=== PATIENT | female | born 1945 | race Hispanic/Latino ===

== ENCOUNTER → 2017-12-24 | Outpatient (CLI) | payer OTHER, MEDICARE ==
[~2017-12-24] MED LIST: CALC750T4 PO; FOLI0.8T2 PO; INSU100I24 SQ; LOVA10TA2 PO; METO-409 PO; OMEG1CAP6 PO; RALO60TA13 PO; TRAM50TA4 PO
== END | disposition home or self-care (01) ==
LOC: RAH 08:55
PROVIDERS: ATTEND Internal Medicine
DX: K59.01 Slow transit constipation (principal)
CPT/HCPCS: 74018

== ENCOUNTER 2020-10-08 08:21 | Day surgery (SDC) | payer MEDICARE ==
[~2020-10-08] VITALS: Ht 162.6 cm; Wt 78.5 kg
[~2020-10-08 08:21] MED LIST changes: -CALC750T4 PO; -INSU100I24 SQ; +INSU100V37 SQ; +LINZESS PO; +METO-408 PO; -METO-409 PO; -OMEG1CAP6 PO; +PANT40TA54 PO; -RALO60TA13 PO; +SODIUM CHLORIDE 0.9% 1000ML 1,000 ML IV ONE; +SUCR1TAB2 PO; +TOLT2TAB PO; -TRAM50TA4 PO
[2020-10-08 09:00] VITALS: BP 160/68
[2020-10-08] MEDS ORDERED: LACT1CAP97 PO (10:03)
[2020-10-08] MEDS ORDERED: [UNRECOGNIZED DRUG - CODE] PO (10:03)
[2020-10-08 10:07] LABS: CREATININE 6.3 mg/dL (0.5-1.5); POTASSIUM 4.2 mmol/L (3.5-5.1)
[2020-10-08] MEDS ORDERED: PROPOFOL 10 MG/ML 20ML VIAL IV ONE (10:44)
[2020-10-08] MEDS ORDERED: MIDAZOLAM HCL 1 MG/ML 2ML VIAL ONE (10:44)
[2020-10-08] MEDS ORDERED: LIDOCAINE HCL 1% 20 ML VIAL ONE (10:45)
[2020-10-08 11:05] VITALS: BP 108/47
[2020-10-08 11:10] VITALS: BP 107/33
[2020-10-08 11:15] VITALS: BP 100/56
== END 2020-10-08 12:02 | disposition home or self-care (01) ==
LOC: ENDO 08:21 → DAH 08:21 → ENDO 12:02
PROVIDERS: ATTEND Internal Medicine Gastroenterology
DX: R10.13 Epigastric pain (principal); K29.50 Unspecified chronic gastritis without bleeding; K59.04 Chronic idiopathic constipation; I12.0 Hypertensive chronic kidney disease with stage 5 chronic kidney disease or end stage renal disease; E11.22 Type 2 diabetes mellitus with diabetic chronic kidney disease; N18.6 End stage renal disease; M81.0 Age-related osteoporosis without current pathological fracture; E78.00 Pure hypercholesterolemia, unspecified; Z79.82 Long term (current) use of aspirin; Z79.84 Long term (current) use of oral hypoglycemic drugs; Z79.899 Other long term (current) drug therapy; Z20.828 Contact with and (suspected) exposure to other viral communicable diseases
CPT/HCPCS: 36415 ×2; 43239; 80048; 82948 ×2; 88305; 88342; 93005; A4215; A4221; A4222; A4223; A4606; A4620; A4657 ×3; A4663; C9803; J2250; J2704; J7030; U0003

== ENCOUNTER → 2021-04-24 | Outpatient (CLI) | payer MEDICARE ==
[~2021-04-24] MED LIST changes: +LACT1CAP97 PO; -SODIUM CHLORIDE 0.9% 1000ML 1,000 ML IV ONE; +[UNRECOGNIZED DRUG - CODE] PO
== END | disposition home or self-care (01) ==
LOC: SHCH 08:39
PROVIDERS: ATTEND Internal Medicine Cardiovascular Disease
DX: I10 Essential (primary) hypertension (principal); R53.83 Other fatigue
CPT/HCPCS: 93306; 93356

== ENCOUNTER → 2021-05-27 | Outpatient (CLI) | payer MEDICARE ==
[~2021-05-27] VITALS: Ht 162.6 cm; Wt 78.5 kg
[~2021-05-27] MED LIST changes: +REGADENOSON 0.4 MG/5 ML PF SYG IVP SCH
== END | disposition home or self-care (01) ==
LOC: SHCH 08:01
PROVIDERS: ATTEND Internal Medicine Cardiovascular Disease
DX: I10 Essential (primary) hypertension (principal); R06.09 Other forms of dyspnea; R10.9 Unspecified abdominal pain
CPT/HCPCS: 78452; 93017; 96374; A9500 ×2; J2785